=== PATIENT | female | born 1985 | race Caucasian/White ===

== ENCOUNTER 2016-09-02 14:05 | Emergency (ER) | payer MEDICAID ==
[~2016-09-02] VITALS: Ht 162.6 cm; Wt 78.0 kg
[~2016-09-02 14:05] MED LIST: ATIVAN1 MG PO; TOPROL XL50 MG PO
[2016-09-02] MEDS ORDERED: AMBIEN5 MG PO (16:00)
== END 2016-09-02 16:29 | disposition short-term general hospital (02) ==
LOC: ER 14:05
DX: B34.9 Viral infection, unspecified (principal); R10.9 Unspecified abdominal pain; R14.0 Abdominal distension (gaseous); F41.9 Anxiety disorder, unspecified; K21.9 Gastro-esophageal reflux disease without esophagitis; R19.7 Diarrhea, unspecified; E05.90 Thyrotoxicosis, unspecified without thyrotoxic crisis or storm; F17.200 Nicotine dependence, unspecified, uncomplicated
CPT/HCPCS: J2405; J2765

== ENCOUNTER 2017-01-03 20:44 | Emergency (ER) | payer SELFPAY ==
[~2017-01-03] VITALS: Ht 162.6 cm; Wt 79.4 kg
[~2017-01-03 20:44] MED LIST changes: +AMBIEN5 MG PO
== END 2017-01-03 21:47 | disposition short-term general hospital (02) ==
LOC: ER 20:44
DX: M79.662 Pain in left lower leg (principal); F17.210 Nicotine dependence, cigarettes, uncomplicated; F41.9 Anxiety disorder, unspecified; F31.9 Bipolar disorder, unspecified; E05.90 Thyrotoxicosis, unspecified without thyrotoxic crisis or storm; Z79.899 Other long term (current) drug therapy